=== PATIENT | female | born 1980 | race Caucasian/White ===

== ENCOUNTER 2017-08-17 08:46 | Emergency (ER) | payer BC ==
[~2017-08-17] VITALS: Ht 167.6 cm; Wt 97.1 kg
[~2017-08-17 08:46] MED LIST: AMBIEN5 MG PO; APAP/HYDROCODON1 T13 PO; COL100 PO; PRISTIQ100 MG PO; XANAX XR1 M1 PO
[2017-08-17 08:50] VITALS: Ht 167.6 cm; Wt 97.1 kg
[2017-08-17 10:25] VITALS: BP 137/90
== END 2017-08-17 10:25 | disposition home or self-care (01) ==
LOC: ED 08:46
DX: F41.9 Anxiety disorder, unspecified (principal); R51 Headache; I10 Essential (primary) hypertension; Z90.49 Acquired absence of other specified parts of digestive tract
CPT/HCPCS: Q0162

== ENCOUNTER 2018-05-17 12:15 | Emergency (ER) | payer BC ==
[~2018-05-17] VITALS: Ht 167.6 cm; Wt 90.7 kg
[2018-05-17 12:27] VITALS: Ht 167.6 cm; Wt 90.7 kg
[2018-05-17 13:16] LABS: BASOPHIL % 0.2 % (0-2); CALCIUM 9.2 mg/dL (8.5-10.1); CARBON DIOXIDE 27.8 mmol/L (21-32); CHLORIDE SERUM 97 mmol/L (98-107); CREATININE SERUM 0.8 mg/dL (0.6-1.0); GFR1 > 60 mL/min; GLUCOSE SERUM 99 mg/dL (74-106); PLATELET COUNT 270 x10^3mcL (130-400); POTASSIUM SERUM 4.1 mmol/L (3.5-5.1); RED CELL DISTRIBUTION WIDTH 13.6 % (11.5-14.5); SODIUM SERUM 132 mmol/L (136-145)
[2018-05-17 13:28] LABS: ALBUMIN 3.7 g/dL (3.4-5.0); ALKALINE PHOSPHATASE 149 U/L (46-116); ALT/SGPT 74 U/L (14-59); AST/SGOT 29 U/L (15-37); BILIRUBIN TOTAL 0.5 mg/dL (0.20-1.00); FREE T4 0.94 ng/dL (0.76-1.46); TOTAL PROTEIN, SERUM 7.3 g/dL (6.4-8.2)
[2018-05-17 14:02] LABS: microscopic required? NO
[2018-05-17 14:49] LABS: AMPHETAMINE QUAL UR NONE DETECTED (See below)
[2018-05-17 14:50] LABS: UA SPECIFIC GRAVITY <=1.005 (1.005-1.035); urine erythrocyte NEGATIVE (NEGATIVE)
[2018-05-17 15:20] VITALS: BP 144/93
== END 2018-05-17 18:00 | disposition left against medical advice (07) ==
LOC: ED 12:15
PROVIDERS: Emergency Medicine
DX: R06.00 Dyspnea, unspecified (principal); I10 Essential (primary) hypertension; F32.9 Major depressive disorder, single episode, unspecified; F41.9 Anxiety disorder, unspecified; Z90.89 Acquired absence of other organs; Z90.49 Acquired absence of other specified parts of digestive tract; Z98.84 Bariatric surgery status
CPT/HCPCS: 83880; 84439; 85378; G0480; J7030; Q0092; Q9967